=== PATIENT | male | born 1990 | race African-American/Black ===

== ENCOUNTER 2021-07-18 11:16 | Emergency (ER) | payer OTHER, SELFPAY ==
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
[2021-07-18 11:22] VITALS: BP 128/79; PULSE 82; RESP 18; TEMP 36.7; O2SAT 100
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
[2021-07-18 13:18] VITALS: PULSE 67; RESP 18; O2SAT 100
== END 2021-07-18 13:19 | disposition home or self-care (01) ==
PROVIDERS: Emergency Provider Emergency Medicine
DX: S00.212A Abrasion of left eyelid and periocular area, initial encounter (principal); M25.562 Pain in left knee; V49.88XA Car occupant (driver) (passenger) injured in other specified transport accidents, initial encounter
CPT/HCPCS: 70450; 73562; 99284